=== PATIENT | female | born 1975 | race Caucasian/White ===

== ENCOUNTER 2020-12-10 12:51 | Observation (INO) | payer OTHER ==
[2020-12-10] MEDS ORDERED: SODIUM CHLORIDE 0.9% 1,000 ML IV STA (13:19)
[2020-12-10] MEDS ORDERED: KETOROLAC 15 MG/ML 1 ML VIAL IVP STA (13:19)
[2020-12-10] MEDS ORDERED: ONDANSETRON 4 MG/2 ML VIAL IVP STA (13:19)
[2020-12-10 14:07] LABS: Appearance,Urine Cloudy (Clear); Bacteria,Urine Rare /hpf; Bilirubin,Urine Negative (Negative); Blood,Urine Small (Negative); Color,Urine Yellow; Glucose,Urine (UA) Negative (Negative); Ketones,Urine Negative (Negative); Leukocyte Esterase,Urine Moderate (Negative); Mucus,Urine Rare /hpf; Nitrite,Urine Negative (Negative); Protein,Urine 1+ (Negative); RBC,Urine 7 /hpf (0-5); Specific Gravity,Urine 1.027 (1.001-1.035); Squamous Epithelial Cell,Urine 2 /hpf (0-4); WBC,Urine 25 /hpf (0-5)
[2020-12-10 14:15] LABS: Albumin 3.2 g/dL (3.5-5.0); Potassium 3.7 mmol/L (3.5-5.1); Total Bilirubin 0.8 mg/dL (0.2-1.3); Total Protein 6.3 g/dL (6.3-8.2)
[2020-12-10 14:24] LABS: Basophils % (A) 0 %; Eosinophils # (A) 0.1 k/uL (0-0.7); Eosinophils % (A) 1 %; HCT 35.8 % (34.0-46.0); HGB 11.1 gm/dL (11.4-16.0); Hypochromasia Slight; Lymphocytes # (A) 1.1 k/uL (1.0-4.8); Lymphocytes % (A) 7 %; MCH 23.4 pg (25.0-35.0); MCHC 30.9 g/dL (31.0-37.0); MCV 75.6 fL (80.0-100.0); Mean Platelet Volume 6.5; Microcytosis Slight; Monocytes # (A) 0.7 k/uL (0-1.0); Monocytes % (A) 4 %; Neutrophils # (A) 14.4 k/uL (1.3-7.7); Neutrophils % (A) 88 %; Platelet Count 696 k/uL (150-450); RBC 4.74 m/uL (3.80-5.40); RDW 15.3 % (11.5-15.5); WBC 16.5 k/uL (3.8-10.6)
--- NOTE | 2020-12-10 14:32 | ED ---
Abdominal Pain HPI <Efrain Zuleta - Last Filed: 12/10/20 15:14> - General Source: patient Mode of arrival: ambulatory Limitations: no limitations <Kahlil Angulo - Last Filed: 12/10/20 15:25> - General Chief Complaint: Abdominal Pain Stated Complaint: Kidney issues Time Seen by Provider: 12/10/20 13:02 - History of Present Illness Initial Comments: 45-year-old female presented emergency department for kidney stone. She notes that she was recently seen at [facility] where she will get a computed tomography scan that showed large stone in the proximal left ureter causing moderate hydronephrosis. Patchy and has been of left kidney suggest pyelonephritis. Small perinephric fluid collection. Cannot exclude developing abscess. Patient notes that the pain is very mild at the time of interview and exam wash was laying in bed. Patient notes that her primary called her to tell her to come to [facility] for evaluation due to the large stone. Patient was a well-appearing 45-year-old female in no apparent distress or pain. She denied any chest pain shortness of breath headache nausea vomiting diarrhea constipation fever fatigue chills. (Kahlil Angulo) - Related Data Home Medications Medication Instructions Recorded Confirmed Levofloxacin [Levaquin] 500 mg PO DAILY 12/10/20 12/10/20 Levothyroxine Sodium [Synthroid] 100 mcg PO DAILY 12/10/20 12/10/20 Sertraline HCl [Zoloft] 25 mg PO DAILY 12/10/20 12/10/20 Allergies Allergy/AdvReac Type Severity Reaction Status Date / Time No Known Allergies Allergy Verified 12/10/20 14:03 Review of Systems ROS Other: All systems not noted in ROS Statement are negative. <Efrain Zuleta - Last Filed: 12/10/20 15:14> ROS Other: All systems not noted in ROS Statement are negative. <Kahlil Angulo - Last Filed: 12/10/20 15:25> ROS Statement: Those systems with pertinent positive or pertinent negative responses have been documented in the HPI. Past Medical History Past Medical History: Thyroid Disorder History of Any Multi-Drug Resistant Organisms: None Reported Past Surgical History: Section, Orthopedic Surgery Additional Past Surgical History / Comment(s): laproscopy, L ankle Past Psychological History: Depression Smoking Status: Current every day smoker Past Alcohol Use History: None Reported Past Drug Use History: None Reported <Kahlil Angulo - Last Filed: 12/10/20 15:25> General Exam Limitations: no limitations General appearance: alert, in no apparent distress, obese Head exam: Present: atraumatic, normocephalic, normal inspection Eye exam: Present: normal appearance, PERRL, EOMI. Absent: scleral icterus, conjunctival injection, periorbital swelling Neck exam: Present: normal inspection Respiratory exam: Present: normal lung sounds bilaterally. Absent: respiratory distress, wheezes, rales, rhonchi, stridor Cardiovascular Exam: Present: regular rate, normal rhythm, normal heart sounds. Absent: systolic murmur, diastolic murmur, rubs, gallop, clicks GI/Abdominal exam: Present: soft, normal bowel sounds. Absent: distended, tenderness, guarding, rebound, rigid Extremities exam: Present: normal inspection, full ROM, normal capillary refill. Absent: tenderness, pedal edema, joint swelling, calf tenderness Back exam: Present: normal inspection, CVA tenderness (L) (Very mild) Neurological exam: Present: alert, oriented X3 Psychiatric exam: Present: normal affect, normal mood Skin exam: Present: warm, dry, intact, normal color. Absent: rash <Kahlil Angulo - Last Filed: 12/10/20 15:25> Course <Efrain Zuleta - Last Filed: 12/10/20 15:14> Vital Signs 12/10/20 12:53 Temperature 98 F Pulse Rate 14 L Respiratory 18 Rate Blood Pressure 132/88 O2 Sat by Pulse 99 Oximetry - Reevaluation(s) Reevaluation #1: 12/10/20 15:14 Patient reevaluated and reexamined by myself, Dr. Zuleta. Patient resting comfortably in bed. Patient did have fever of 100.0 last night. Patient has been having left flank pain intermittently over the past month, severe at times. Patient did have computed tomography scan done and [place] yesterday. Case was discussed in detail with Dr. Hilton who is familiar with this patient. He will admit with IV Zosyn and consider whether patient needs stent. I do agree with PA findings. This includes diagnostic interpretation and treatment plan. No tenderness on exam at this time. (Efrain Zuleta) Medical Decision Making - Lab Data Result diagrams: 12/10/20 13:47 12/10/20 13:47 <Efrain Zuleta - Last Filed: 12/10/20 15:14> - Lab Data Result diagrams: 12/10/20 13:47 12/10/20 13:47 <Kahlil Angulo - Last Filed: 12/10/20 15:25> - Medical Decision Making Patient is a 45-year-old female that presents to the emergency Department due to her primary care saying that she needs to be seen after a large any stone was noted on an outpatient computed tomography scan. Labs, KUB, 1 L normal saline, 4 mg of morphine, 4 mg of Zofran ordered. Labs: White blood cells 16.5 Urinalysis: 7 red blood cells, 25 white blood cells Computed tomography scan results and previous labs reviewed with Dr. Zuleta. Wrist discussed with Dr. Zuleta, will consult urology. Patient most likely will stay in the hospital. (Kahlil Angulo) - Lab Data Lab Results 12/10/20 12/10/20 12/10/20 Range/Units 13:47 13:47 13:47 WBC 16.5 H (3.8-10.6) k/uL RBC 4.74 (3.80-5.40) m/uL Hgb 11.1 L (11.4-16.0) gm/dL Hct 35.8 (34.0-46.0) % MCV 75.6 L (80.0-100.0) fL MCH 23.4 L (25.0-35.0) pg MCHC 30.9 L (31.0-37.0) g/dL RDW 15.3 (11.5-15.5) % Plt Count 696 H (150-450) k/uL MPV 6.5 Neutrophils % 88 % Lymphocytes % 7 % Monocytes % 4 % Eosinophils % 1 % Basophils % 0 % Neutrophils # 14.4 H (1.3-7.7) k/uL Lymphocytes # 1.1 (1.0-4.8) k/uL Monocytes # 0.7 (0-1.0) k/uL Eosinophils # 0.1 (0-0.7) k/uL Basophils # 0.0 (0-0.2) k/uL Hypochromasia Slight Microcytosis Slight Sodium (137-145) mmol/L Potassium (3.5-5.1) mmol/L Chloride (98-107) mmol/L Carbon Dioxide (22-30) mmol/L Anion Gap mmol/L BUN (7-17) mg/dL Creatinine (0.52-1.04) mg/dL Est GFR (CKD-EPI)AfAm (>60 ml/min/1.73 sqM) Est GFR (CKD-EPI)NonAf (>60 ml/min/1.73 sqM) Glucose (74-99) mg/dL Calcium (8.4-10.2) mg/dL Total Bilirubin (0.2-1.3) mg/dL AST (14-36) U/L ALT (4-34) U/L Alkaline Phosphatase (38-126) U/L Total Protein (6.3-8.2) g/dL Albumin (3.5-5.0) g/dL Amylase (30-110) U/L Lipase (23-300) U/L Urine Color Yellow Urine Appearance Cloudy H (Clear) Urine pH 7.0 (5.0-8.0) Ur Specific [place] 1.027 (1.001-1.035) Urine Protein 1+ H (Negative) Urine Glucose (UA) Negative (Negative) Urine Ketones Negative (Negative) Urine Blood Small H (Negative) Urine Nitrite Negative (Negative) Urine Bilirubin Negative (Negative) Urine Urobilinogen 4.0 (<2.0) mg/dL Ur Leukocyte Esterase Moderate H (Negative) Urine RBC 7 H (0-5) /hpf Urine WBC 25 H (0-5) /hpf Ur Squamous Epith Cells 2 (0-4) /hpf Urine Bacteria Rare H (None) /hpf Urine Mucus Rare H (None) /hpf Urine HCG, Qual Not Detected (Not Detectd) 12/10/20 Range/Units 13:47 WBC (3.8-10.6) k/uL RBC (3.80-5.40) m/uL Hgb (11.4-16.0) gm/dL Hct (34.0-46.0) % MCV (80.0-100.0) fL MCH (25.0-35.0) pg MCHC (31.0-37.0) g/dL RDW (11.5-15.5) % Plt Count (150-450) k/uL MPV Neutrophils % % Lymphocytes % % Monocytes % % Eosinophils % % Basophils % % Neutrophils # (1.3-7.7) k/uL Lymphocytes # (1.0-4.8) k/uL Monocytes # (0-1.0) k/uL Eosinophils # (0-0.7) k/uL Basophils # (0-0.2) k/uL Hypochromasia Microcytosis Sodium 134 L (137-145) mmol/L Potassium 3.7 (3.5-5.1) mmol/L Chloride 99 (98-107) mmol/L Carbon Dioxide 27 (22-30) mmol/L Anion Gap 8 mmol/L BUN 11 (7-17) mg/dL Creatinine 0.98 (0.52-1.04) mg/dL Est GFR (CKD-EPI)AfAm 82 (>60 ml/min/1.73 sqM) Est GFR (CKD-EPI)NonAf 71 (>60 ml/min/1.73 sqM) Glucose 95 (74-99) mg/dL Calcium 9.0 (8.4-10.2) mg/dL Total Bilirubin 0.8 (0.2-1.3) mg/dL AST 35 (14-36) U/L ALT 72 H (4-34) U/L Alkaline Phosphatase 218 H (38-126) U/L Total Protein 6.3 (6.3-8.2) g/dL Albumin 3.2 L (3.5-5.0) g/dL Amylase 58 (30-110) U/L Lipase 91 (23-300) U/L Urine Color Urine Appearance (Clear) Urine pH (5.0-8.0) Ur Specific [place] (1.001-1.035) Urine Protein (Negative) Urine Glucose (UA) (Negative) Urine Ketones (Negative) Urine Blood (Negative) Urine Nitrite (Negative) Urine Bilirubin (Negative) Urine Urobilinogen (<2.0) mg/dL Ur Leukocyte Esterase (Negative) Urine RBC (0-5) /hpf Urine WBC (0-5) /hpf Ur Squamous Epith Cells (0-4) /hpf Urine Bacteria (None) /hpf Urine Mucus (None) /hpf Urine HCG, Qual (Not Detectd) Disposition <Efrain Zuleta - Last Filed: 12/10/20 15:14> Is patient prescribed a controlled substance at d/c from ED?: No Time of Disposition: 15:25 <Kahlil Angulo - Last Filed: 12/10/20 15:25> Clinical Impression: Kidney stone, Leukocytosis Disposition: ADMITTED IP TO THIS HOSP Condition: Stable Referrals: None,Stated [Primary Care Provider] - 1-2 days
--- NOTE | 2020-12-10 14:40 | XR ---
EXAMINATION TYPE: XR KUB DATE OF EXAM: 12/10/2020 COMPARISON: Outside CT 12/09/2020 INDICATION: Abdomen pain left flank pain TECHNIQUE: Abdomen is examined in the upright and supine views FINDINGS: Small amount of bowel gas is within the colon. Some air-fluid levels are present. No mass effect is e vident. Psoas margins are normal. No organomegaly is present. There is a 1.8 x 0.7 cm mid left calcification between the left L3 and L4 transverse processes likely represents a mid left ureteral stone. This would correlate with the CT findings. IMPRESSION: 1. Proximal left ureteral stone
[2020-12-10] MEDS ORDERED: ONDANSETRON 4 MG/2 ML VIAL IVP PRN (16:19)
[2020-12-10] MEDS ORDERED: KETOROLAC 15 MG/ML 1 ML VIAL IVP PRN (16:19)
[2020-12-10] MEDS ORDERED: NALOXONE 0.4 MG/ML 1 ML VIAL IV PRN (16:19)
[2020-12-10] MEDS: PIPERACILLIN-TAZOBACTAM 3.375 GM in SODIUM CHLORIDE 0.9% 100 ML IVPB SCH (16:27)
--- NOTE | 2020-12-10 16:58 | P.GSHP ---
History of Present Illness H&P Date: 12/10/20 Chief Complaint: Left flank pain The patient is a 45-year-old white female with a history of recurrent urolithiasis dating back to age 21, at which time she underwent stone basket removal of a ureteral calculus. She has passed calculi since that time. She now presents with a one-month history of intermittent left flank pain associated with nausea, vomiting, and intermittent fever. She was evaluated in [facility] yesterday. A computed tomography scan showed moderate left hydronephrosis with left perinephric stranding due to a 5 x 8 x 14 mm left proximal ureteral calculus. Heterogenous enhancement of the left kidney was noted suggestive of pyelonephritis. A small perinephric fluid collection was also noted. - Constitutional Constitutional: Reports chills, Reports fever - Gastrointestinal Gastrointestinal: Reports nausea, Reports vomiting - Genitourinary (Female) Genitourinary: Reports flank pain, Reports kidney stones, Denies dysuria, Denies hematuria Past Medical History Past Medical History: Thyroid Disorder History of Any Multi-Drug Resistant Organisms: None Reported Past Surgical History: Section, Orthopedic Surgery Additional Past Surgical History / Comment(s): laproscopy, L ankle Past Psychological History: Depression Smoking Status: Current every day smoker Past Alcohol Use History: None Reported Past Drug Use History: None Reported Medications and Allergies Home Medications Medication Instructions Recorded Confirmed Type Levofloxacin [Levaquin] 500 mg PO DAILY 12/10/20 12/10/20 History Levothyroxine Sodium [Synthroid] 100 mcg PO DAILY 12/10/20 12/10/20 History Sertraline HCl [Zoloft] 25 mg PO DAILY 12/10/20 12/10/20 History Allergies Allergy/AdvReac Type Severity Reaction Status Date / Time No Known Allergies Allergy Verified 12/10/20 14:03 Surgical - Exam Vital Signs Temp Pulse Resp BP Pulse Ox 98 F 14 L 18 132/88 99 12/10/20 12:53 12/10/20 12:53 12/10/20 12:53 12/10/20 12:53 12/10/20 12:53 - General well developed, well nourished, no distress - Neck no masses, trachea midline - Respiratory normal respiratory effort - Abdomen Abdomen: soft, non tender, no guarding, no rigid, no rebound - Psychiatric oriented to time, oriented to person, oriented to place, speech is normal, memory intact Results - Labs 12/10/20 13:47 12/10/20 13:47 Abnormal Lab Results - Last 24 Hours (Table) 12/10/20 12/10/20 12/10/20 Range/Units 13:47 13:47 13:47 WBC 16.5 H (3.8-10.6) k/uL Hgb 11.1 L (11.4-16.0) gm/dL MCV 75.6 L (80.0-100.0) fL MCH 23.4 L (25.0-35.0) pg MCHC 30.9 L (31.0-37.0) g/dL Plt Count 696 H (150-450) k/uL Neutrophils # 14.4 H (1.3-7.7) k/uL Sodium 134 L (137-145) mmol/L ALT 72 H (4-34) U/L Alkaline Phosphatase 218 H (38-126) U/L Albumin 3.2 L (3.5-5.0) g/dL Urine Appearance Cloudy H (Clear) Urine Protein 1+ H (Negative) Urine Blood Small H (Negative) Ur Leukocyte Esterase Moderate H (Negative) Urine RBC 7 H (0-5) /hpf Urine WBC 25 H (0-5) /hpf Urine Bacteria Rare H (None) /hpf Urine Mucus Rare H (None) /hpf Diabetes panel 12/10/20 Range/Units 13:47 Sodium 134 L (137-145) mmol/L Potassium 3.7 (3.5-5.1) mmol/L Chloride 99 (98-107) mmol/L Carbon Dioxide 27 (22-30) mmol/L BUN 11 (7-17) mg/dL Creatinine 0.98 (0.52-1.04) mg/dL Glucose 95 (74-99) mg/dL Calcium 9.0 (8.4-10.2) mg/dL AST 35 (14-36) U/L ALT 72 H (4-34) U/L Alkaline Phosphatase 218 H (38-126) U/L Total Protein 6.3 (6.3-8.2) g/dL Albumin 3.2 L (3.5-5.0) g/dL Calcium panel 12/10/20 Range/Units 13:47 Calcium 9.0 (8.4-10.2) mg/dL Albumin 3.2 L (3.5-5.0) g/dL Pituitary panel 12/10/20 Range/Units 13:47 Sodium 134 L (137-145) mmol/L Potassium 3.7 (3.5-5.1) mmol/L Chloride 99 (98-107) mmol/L Carbon Dioxide 27 (22-30) mmol/L BUN 11 (7-17) mg/dL Creatinine 0.98 (0.52-1.04) mg/dL Glucose 95 (74-99) mg/dL Calcium 9.0 (8.4-10.2) mg/dL Adrenal panel 12/10/20 Range/Units 13:47 Sodium 134 L (137-145) mmol/L Potassium 3.7 (3.5-5.1) mmol/L Chloride 99 (98-107) mmol/L Carbon Dioxide 27 (22-30) mmol/L BUN 11 (7-17) mg/dL Creatinine 0.98 (0.52-1.04) mg/dL Glucose 95 (74-99) mg/dL Calcium 9.0 (8.4-10.2) mg/dL Total Bilirubin 0.8 (0.2-1.3) mg/dL AST 35 (14-36) U/L ALT 72 H (4-34) U/L Alkaline Phosphatase 218 H (38-126) U/L Total Protein 6.3 (6.3-8.2) g/dL Albumin 3.2 L (3.5-5.0) g/dL - Imaging Abdominal x-ray: report reviewed, image reviewed CT scan - abdomen: report reviewed Assessment and Plan (1) Calculus of ureter Current Visit: Yes Status: Acute Code(s): N20.1 - CALCULUS OF URETER SNOMED Code(s): 30725249 (2) Hydronephrosis with renal and ureteral calculous obstruction Current Visit: Yes Status: Acute Code(s): N13.2 - HYDRONEPHROSIS WITH RENAL AND URETERAL CALCULOUS OBSTRUCTION SNOMED Code(s): 143443815 (3) Acute pyelonephritis Current Visit: Yes Status: Acute Code(s): N10 - ACUTE PYELONEPHRITIS SNOMED Code(s): 92302095 Plan: The patient has been treated with several courses of antibiotics. She appears to have acute left pyelonephritis complicated by a large left proximal ureteral calculus. She will undergo cystoscopy with left ureteral stent insertion. The rationale for this was reviewed in detail with the patient and her . Potential risks associated with the procedure were also discussed, which include anesthesia, ureteral injury, and inability to successfully place the stent. She'll be treated with antibiotics, and after her UTI has resolved it is anticipated she will undergo ureteroscopy with laser lithotripsy in 2-3 weeks. Time with Patient: Greater than 30
[2020-12-10] MEDS ORDERED: fentaNYL (PF) 50 MCG/ML 2 ML AMP ONE (19:46)
[2020-12-10] MEDS ORDERED: ONDANSETRON 4 MG/2 ML VIAL ONE (19:46)
[2020-12-10] MEDS ORDERED: MIDAZOLAM 2 MG/2 ML VIAL ONE (19:46)
[2020-12-10] MEDS ORDERED: SUCCINYLCHOLINE CHLORIDE 100 MG/5 ML SYR IV ONE (19:46)
[2020-12-10] MEDS ORDERED: PROPOFOL 10 MG/ML 20 ML VIAL IV ONE (19:46)
[2020-12-10] MEDS ORDERED: LIDOCAINE 1% INJ 10MG/ML (20 ML MDV) ONE (19:46)
[2020-12-10] MEDS ORDERED: IV FLUID CONTINUATION 800 ML IV ONE (19:48)
--- NOTE | 2020-12-10 20:28 | P.OP ---
Date of Procedure: 12/10/20 Preoperative Diagnosis: Left hydronephrosis secondary to left ureteral calculus Postoperative Diagnosis: Same Procedure(s) Performed: Cystoscopy, left ureteral stent insertion Anesthesia: ADAMA Surgeon: Blaise Benitez Estimated Blood Loss (ml): 0 IV fluids (ml): 700 Pathology: none sent Condition: stable Disposition: PACU Indications for Procedure: The patient is a 45-year-old white female who presents with a one-month history of intermittent left flank pain associated with nausea, vomiting, and intermittent fever. She was evaluated in [facility] yesterday. A CT scan showed moderate left hydronephrosis with left perinephric stranding due to a 5 x 8 x 14 mm left proximal ureteral calculus. Heterogenous enhancement of the left kidney was noted suggestive of pyelonephritis. A small perinephric fluid collection was also noted. She has been admitted and started on IV antibiotics and now comes for stent placement. Operative Findings: Successful left ureteral stent insertion. Description of Procedure: The patient was taken to the operating room and placed in the dorsolithotomy position, with legs supported in Nilson stirrups. The external genitalia was prepped and draped sterilely. The 30 lens was used to introduce the 22-Turkish Stortz cystoscopic sheath through the urethra and into the bladder under direct vision. The bladder was examined in its entirety. Both ureteral orifices were of normal anatomic location and configuration. No tumors or foreign bodies were seen. An angle-tip 0.035 inch Glidewire was passed through the cystoscope. The left ureteral orifice was cannulated, and the Glidewire was slowly advanced up to the renal pelvis. The Glidewire passed beyond the calculus with minimal resistance. A 24 cm, 6-Turkish double-J ureteral stent was placed over the wire. Proper stent positioning was verified fluoroscopically and endoscopically. The bladder was emptied and the cystoscope removed. The patient tolerated the procedure well was taken to the recovery room in stable condition.
[2020-12-10] MEDS ORDERED: LACTATED RINGERS 1,000 ML IV ONE ×2 (20:40)
[2020-12-10] MEDS: SODIUM CHLORIDE 0.9% 1,000 ML IV SCH (22:02)
[2020-12-11] MEDS: PIPERACILLIN-TAZOBACTAM 3.375 GM in SODIUM CHLORIDE 0.9% 100 ML IVPB SCH ×2 (00:19→09:36)
[2020-12-11] MEDS ORDERED: LEVOTHYROXINE 100 MCG TAB PO SCH (06:30)
--- NOTE | 2020-12-11 08:14 | FL ---
EXAMINATION TYPE: FL guidance operating room DATE OF EXAM: 12/10/2020 FLUOROSCOPY Fluoroscopy time of 8 seconds was used during left ureteral stent placement. 1 image/s document/s th e procedure.
[2020-12-11 08:24] LABS: Basophils % (A) 0 %; Eosinophils # (A) 0.1 k/uL (0-0.7); Eosinophils % (A) 1 %; HCT 29.4 % (34.0-46.0); Hypochromasia Marked; Lymphocytes # (A) 1.3 k/uL (1.0-4.8); Lymphocytes % (A) 11 %; MCH 24.1 pg (25.0-35.0); MCHC 30.9 g/dL (31.0-37.0); Mean Platelet Volume 6.1; Microcytosis Slight; Monocytes # (A) 0.4 k/uL (0-1.0); Monocytes % (A) 3 %; Neutrophils # (A) 9.7 k/uL (1.3-7.7); Neutrophils % (A) 83 %; Platelet Count 544 k/uL (150-450); RBC 3.78 m/uL (3.80-5.40); RDW 15.3 % (11.5-15.5); WBC 11.7 k/uL (3.8-10.6)
[2020-12-11 08:29] LABS: HGB 9.1 gm/dL (11.4-16.0)
[2020-12-11 08:44] VITALS: BP 137/87; PULSE 88; RESP 18; TEMP 98.3
[2020-12-11] MEDS ORDERED: SERTRALINE 25 MG TAB PO SCH (09:00)
--- NOTE | 2020-12-11 09:05 | P.DS ---
Providers Date of admission: 12/10/20 15:15 Expected date of discharge: 12/11/20 Attending physician: Blaise Benitez Primary care physician: Stated None - Discharge Diagnosis(es) (1) Calculus of ureter Current Visit: Yes Status: Acute (2) Hydronephrosis with renal and ureteral calculous obstruction Current Visit: Yes Status: Acute (3) Acute pyelonephritis Current Visit: Yes Status: Acute Hospital Course: The patient was admitted with intractable pain due to a large left proximal ureteral calculus. She was noted to have leukocytosis. She had a fever 1 day prior to admission but was afebrile during the hospitalization. She underwent uncomplicated placement of a left ureteral stent on 12/10/2020. At the time of discharge, she was afebrile with stable vital signs. She denied pain and nausea. Her WBC count was improved. Procedures: Cystoscopy, left ureteral stent insertion on 12/10/2020. Patient Condition at Discharge: Good Plan - Discharge Summary Discharge Rx Participant: No New Discharge Prescriptions: No Action Sertraline HCl [Zoloft] 25 mg PO DAILY Levothyroxine Sodium [Synthroid] 100 mcg PO DAILY Levofloxacin [Levaquin] 500 mg PO DAILY Discharge Medication List Levofloxacin [Levaquin] 500 mg PO DAILY 12/10/20 [History] Levothyroxine Sodium [Synthroid] 100 mcg PO DAILY 12/10/20 [History] Sertraline HCl [Zoloft] 25 mg PO DAILY 12/10/20 [History] Follow up Appointment(s)/Referral(s): None,Stated [Primary Care Provider] - 1-2 days Activity/Diet/Wound Care/Special Instructions: Diet as tolerated. Activity as tolerated. Patient should continue taking home medications including Levaquin. Arrangements will be made for her to undergo ureteroscopic removal of her calculus later this month. Discharge Disposition: HOME SELF-CARE
[2020-12-11] MEDS: SODIUM CHLORIDE 0.9% 1,000 ML IV SCH (10:21)
== END 2020-12-11 11:57 | disposition home or self-care (01) ==
LOC: EC 12:51 → 6PED 15:15
PROVIDERS: ADMIT Urology; ATTEND Urology
DX: N13.6 Pyonephrosis (principal); Z20.822 Contact with and (suspected) exposure to COVID-19; E07.9 Disorder of thyroid, unspecified; F17.200 Nicotine dependence, unspecified, uncomplicated; F32.9 Major depressive disorder, single episode, unspecified; Z79.890 Hormone replacement therapy; Z79.899 Other long term (current) drug therapy; Z87.442 Personal history of urinary calculi; Z98.891 History of uterine scar from previous surgery
CPT/HCPCS: 52282; 96361; 96374; 96375; 99285; 36415; 80053; 82150; 83605; 83690; 85025 ×2; 81001; 81025; 87040; 87086; 87635; 74018; G0378 ×2; C2625; C1769; C1758 ×2; J2543 ×2; J2250; J2405; J2001; J3010; J1885; J0330; J2704

== ENCOUNTER 2020-12-25 07:16 | Day surgery (SDC) | payer OTHER ==
--- NOTE | 2020-12-21 21:38 | P.GSHP ---
History of Present Illness H&P Date: 12/21/20 Chief Complaint: Left flank pain The patient is a 45-year-old white female with a history of recurrent urolithiasis dating back to age 21, at which time she underwent stone basket removal of a ureteral calculus. She has passed calculi since that time. She now presents with a one-month history of intermittent left flank pain associated with nausea, vomiting, and intermittent fever. She was evaluated in [facility]. A CT scan showed moderate left hydronephrosis with left perinephric stranding due to a 5 x 8 x 14 mm left proximal ureteral calculus. Heterogenous enhancement of the left kidney was noted suggestive of pyelonephritis, though a urine culture was negative. A small perinephric fluid collection was also noted. She underwent left ureteral stent insertion on 12/10/2020. - Genitourinary (Female) Genitourinary: Reports flank pain, Reports kidney stones, Denies dysuria, Denies hematuria Past Medical History Past Medical History: Thyroid Disorder History of Any Multi-Drug Resistant Organisms: None Reported Past Surgical History: Section, Orthopedic Surgery Additional Past Surgical History / Comment(s): laproscopy, L ankle Past Anesthesia/Blood Transfusion Reactions: No Reported Reaction Past Psychological History: Depression Smoking Status: Current every day smoker Past Alcohol Use History: None Reported Past Drug Use History: None Reported Medications and Allergies Home Medications Medication Instructions Recorded Confirmed Type Levofloxacin [Levaquin] 500 mg PO DAILY 12/10/20 12/10/20 History Levothyroxine Sodium [Synthroid] 100 mcg PO DAILY 12/10/20 12/10/20 History Sertraline HCl [Zoloft] 25 mg PO DAILY 12/10/20 12/10/20 History Allergies Allergy/AdvReac Type Severity Reaction Status Date / Time No Known Allergies Allergy Verified 12/10/20 14:03 Surgical - Exam - General well developed, well nourished, no distress - Respiratory normal respiratory effort - Abdomen Abdomen: soft, non tender, no guarding, no rigid, no rebound - Genitourinary normal external genitalia - Psychiatric oriented to time, oriented to person, oriented to place, speech is normal, memory intact Assessment and Plan (1) Calculus of ureter Status: Acute Code(s): N20.1 - CALCULUS OF URETER SNOMED Code(s): 82224353 Plan: Cystoscopy, left ureteral stent removal, left ureteroscopy with Holmium laser lithotripsy, and possible stone basketing. The procedure has been reviewed in detail with the patient. She is aware of potential risks, which include anesthesia, bleeding, infection, and ureteral injury.
[2020-12-24 09:56] VITALS: BMI 40.2
[~2020-12-25 07:16] MED LIST: DEXAMETHASONE SOD PHOSPHATE 4 MG/ML 1 ML VIAL IV ONE; HYDROmorphone 0.5 MG/0.5 ML SYRINGE IVP PRN; LACTATED RINGERS 1,000 ML IV SCH; ONDANSETRON 4 MG/2 ML VIAL IVP ONE
--- NOTE | 2020-12-25 07:39 | XR ---
EXAMINATION TYPE: XR KUB DATE OF EXAM: 12/25/2020 7:29 AM CLINICAL HISTORY: Lithotripsy TECHNIQUE: Single supine KUB image of the abdomen is obtained. COMPARISON: None. FINDINGS: Scattered gas is seen in non-distended small bowel loops. Gas and fecal material is seen in non-distended colon. There is a left ureteral stent. There is a 1.5 cm density seen in the region of the proximal left ureter, possibly a calculus. IMPRESSION: There is a left ureteral stent. There is a 1.5 cm density seen in the region of the proximal left ure ter, possibly a calculus.
[2020-12-25] MEDS ORDERED: LIDOCAINE 1% (10MG/ML) FOR IV START INTRADERMA ONE (08:12)
[2020-12-25] MEDS ORDERED: HYDROmorphone (PF) 1 MG/ML ONE (09:01)
[2020-12-25] MEDS ORDERED: LIDOCAINE 1% INJ 10MG/ML (20 ML MDV) ONE (09:01)
[2020-12-25] MEDS ORDERED: fentaNYL (PF) 50 MCG/ML 2 ML AMP ONE (09:01)
[2020-12-25] MEDS ORDERED: KETOROLAC 15 MG/ML 1 ML VIAL ONE (09:01)
[2020-12-25] MEDS ORDERED: SUCCINYLCHOLINE CHLORIDE 100 MG/5 ML SYR IV ONE (09:01)
[2020-12-25] MEDS ORDERED: PROPOFOL 10 MG/ML 20 ML VIAL IV ONE (09:01)
[2020-12-25] MEDS ORDERED: ROCURONIUM 10 MG/ML (5 ML VIAL) IV ONE (09:01)
[2020-12-25] MEDS ORDERED: MIDAZOLAM 2 MG/2 ML VIAL ONE (09:01)
[2020-12-25] MEDS ORDERED: LACTATED RINGERS 1,000 ML IV ONE (10:19)
--- NOTE | 2020-12-25 10:21 | P.OP ---
Date of Procedure: 12/25/20 Preoperative Diagnosis: Left ureteral calculus Postoperative Diagnosis: Same Procedure(s) Performed: Cystoscopy, left ureteral stent removal, left ureteroscopy with Holmium laser lithotripsy and stone basketing Anesthesia: RASHMI Surgeon: Blaise Benitez Estimated Blood Loss (ml): 0 IV fluids (ml): 900 Pathology: other (Calculus fragments, sent for chemical analysis) Condition: stable Disposition: PACU Indications for Procedure: The patient is a 45-year-old white female with a history of recurrent urolithiasis dating back to age 21, at which time she underwent stone basket removal of a ureteral calculus. She has passed calculi since that time. She no w presents with a one-month history of intermittent left flank pain associated with nausea, vomiting, and intermittent fever. She was evaluated in [facility]. A CT scan showed moderate left hydronephrosis with left perinephric stranding due to a 5 x 8 x 14 mm left proximal ureteral calculus. Heterogenous enhancement of the left kidney was noted suggestive of pyelonephritis, though a urine culture was negative. A small perinephric fluid collection was also noted. She underwent left ureteral stent insertion on 12/10/2020. She now comes for stent removal and ureteroscopic removal of the calculus. A preoperative urine culture was negative. Operative Findings: Complete fragmentation of large left proximal ureteral calculus. Description of Procedure: The patient was taken to the operating room and placed in the dorsolithotomy position, with legs supported in Nilson stirrups. The external genitalia was prepped and draped sterilely. The 30 lens was used to introduce the 21-[place] Ortiz cystoscopic sheath through the urethra and into the bladder under direct vision. The bladder was examined in its entirety and was unremarkable. Grasping forceps were used to grasp the distal end of the left ureteral stent, which was removed along with the cystoscope. The Ortiz semirigid ureteroscope was advanced into the bladder, and the left ureteral orifice was cannulated. The ureteroscope was slowly advanced under direct vision, up to the calculus. The 272 micron Holmium laser probe was passed through the ureteroscope, and lithotripsy was performed. The calculus fragmented readily. A 1.9-[place] nitinol basket was used to remove the larger calculus fragments. These were saved and sent for chemical analysis. At the completion of the procedure, there were no residual calculus fragments exceeding 1 mm, and no evidence of ureteral trauma. The ureteroscope was removed, and the cystoscope was then passed into the bladder. The bladder was drained of multiple calculus fragments. The patient tolerated the procedure well and was taken to the recovery room in stable condition. ADELAIDE HUANG Report: Procedure Acuity: Elective Stone Size and Location: 5 x 8 x 14 mm left proximal ureteral calculus Ureteral Dilation: No Ureteral Access Sheath Used: No Stone Sent for Analysis: Yes All Stones/Fragments Were Removed with a Basket: No Complications: No Preoperative Antibiotics Given: Yes Stent Placed: No
[2020-12-25 10:36] VITALS: TEMP 97.3
--- NOTE | 2020-12-25 10:43 | FL ---
Fluoroscopy INDICATION: Pain FINDINGS: Fluoroscopy time: 3 seconds. Images obtained: 1. IMPRESSIONS: 1. Documentation of fluoroscopy.
[2020-12-25 11:30] VITALS: BP 131/83; PULSE 84; RESP 18
== END 2020-12-25 12:10 | disposition home or self-care (01) ==
LOC: OR 07:16
PROVIDERS: ATTEND Urology
DX: N13.2 Hydronephrosis with renal and ureteral calculous obstruction (principal); E07.9 Disorder of thyroid, unspecified; F32.9 Major depressive disorder, single episode, unspecified; F17.210 Nicotine dependence, cigarettes, uncomplicated; Z87.442 Personal history of urinary calculi; F41.9 Anxiety disorder, unspecified; Z98.891 History of uterine scar from previous surgery; Z98.890 Other specified postprocedural states; Z79.890 Hormone replacement therapy; Z79.899 Other long term (current) drug therapy
CPT/HCPCS: 81025; 82365; 74018; 52353; C1769; J2250; J1100; J0690; J2405; J2001; J3010; J1170; J1885; J0330; J2704